=== PATIENT | female | born 2000 | race Caucasian/White ===

== ENCOUNTER → 2021-11-11 | Outpatient (CLI) | payer SELFPAY ==
--- NOTE | 2021-11-11 12:30 | Diagnostic Imaging Report ---
FOOT, RIGHT, 3 VIEW INDICATION: None available COMPARISON: None available. TECHNIQUE: 3 views of the right foot were obtained. FINDINGS: There is oblique longitudinal fracture involving the base of 5th metatarsal at the junction of zone 1 and zone 2. Fracture has approximately 2 mm of diastases and there does not appear to be interosseous callus formation. No periosteal callus. No other fracture seen. IMPRESSION: Age-indeterminate, but likely subacute fracture at the base of 5th metatarsal that shows no features of healing. Dictated by: Dictated on workstation # [id number]
== END ==
LOC: RAD 10:08
PROVIDERS: ATTEND Nurse Practitioner Family
DX: M79.671 Pain in right foot (principal)
CPT/HCPCS: 73630